=== PATIENT | female | born 1980 | race Caucasian/White ===

== ENCOUNTER 2025-03-30 22:25 | Emergency (ER) | payer SELFPAY ==
[~2025-03-30] VITALS: Ht 152.4 cm; Wt 48.0 kg
[2025-03-30 22:43] VITALS: TEMP 36.6
[2025-03-30 22:45] VITALS: O2SAT 96
[2025-03-30 23:12] LABS: CHLORIDE 103 mEq/L (98-107); POTASSIUM 3.6 mEq/L (3.5-5.1); SODIUM 140 mEq/L (136-145)
[2025-03-30 23:13] LABS: CARBON DIOXIDE 24 mEq/L (21-32)
[2025-03-30 23:15] LABS: *AMPHETAMINES SCREEN URINE NEGATIVE (NEGATIVE); *BARBITURATES SCREEN URINE NEGATIVE (NEGATIVE); *BENZODIAZEPINES SCREEN URINE NEGATIVE (NEGATIVE); *COCAINE SCREEN URINE NEGATIVE (NEGATIVE); CANNABINOID URINE SCREEN NEGATIVE (NEGATIVE); ECSTASY MDMA SCREEN URINE NEGATIVE (NEGATIVE); METHADONE URINE SCREEN NEGATIVE (NEGATIVE); OPIATES URINE SCREEN NEGATIVE (NEGATIVE); PHENCYCLIDINE URINE SCREEN NEGATIVE (NEGATIVE)
[2025-03-30 23:18] LABS: CREATININE 0.7 mg/dL (0.6-1.0); GLUCOSE 94 mg/dL (70-105); UREA NITROGEN BLOOD 11 mg/dL (9-23)
[2025-03-30 23:23] LABS: BASOPHILS % 0.8 % (0.0-2.0); EOSINOPHILS % 0.7 % (0.0-5.0); HEMATOCRIT. 39.9 % (36.0-48.0); HEMOGLOBIN. 13.2 g/dL (12.0-16.0); LYMPHOCYTES % 39.3 % (20.0-50.0); MEAN CORPUSCULAR HEMOGLOBIN 28.2 pg (28.0-32.0); MEAN CORPUSCULAR HGB CONC 33.2 g/dL (31.0-37.0); MEAN CORPUSCULAR VOLUME 84.8 fL (81.0-99.0); MEAN PLATELET VOLUME 9.3 fl (7.4-10.4); MONOCYTES % 5.8 % (2.0-8.0); NEUTROPHILS % 53.4 % (40.0-76.0); PLATELET 447 x1000/uL (130-400); RED CELL DISTRIBUTION WIDTH 14.8 % (11.6-14.6); WHITE BLOOD COUNT 7.6 x1000/uL (4.5-11.0)
[2025-03-30 23:28] LABS: ETHANOL BLOOD 335 mg/dL (<10); HCG SCREEN NEGATIVE
[2025-03-30 23:40] VITALS: BP 94/56; PULSE 86; RESP 19; O2SAT 97
== END 2025-03-30 23:55 | disposition left against medical advice (07) ==
LOC: ER 22:25
DX: S09.8XXA Other specified injuries of head, initial encounter (principal); F10.129 Alcohol abuse with intoxication, unspecified; W18.2XXA Fall in (into) shower or empty bathtub, initial encounter; Z79.899 Other long term (current) drug therapy; X58.XXXA Exposure to other specified factors, initial encounter; Y93.89 Activity, other specified; Y92.89 Other specified places as the place of occurrence of the external cause; Y99.8 Other external cause status; Y90.9 Presence of alcohol in blood, level not specified
CPT/HCPCS: 80305; 80048; 80320; 84703; 85025; 36415; 99283; Z7610; A4606; G0480